=== PATIENT | female | born 1990 | race Caucasian/White ===

== ENCOUNTER 2018-05-07 09:37 | Emergency (ER) | payer MEDICAID, OTHER ==
[2018-05-07] MEDS: IBUPROFEN 600 MG TAB PO (10:11)
== END 2018-05-07 10:49 | disposition home or self-care (01) ==
LOC: FTE 09:37
DX: M25.571 Pain in right ankle and joints of right foot (principal)
CPT/HCPCS: 73610; 73610-RT; 73630; 99283-25